=== PATIENT | female | born 2000 | race Two or more races ===

== ENCOUNTER 2020-08-29 00:31 | Emergency (ER) | payer OTHER ==
[~2020-08-29] VITALS: Ht 167.6 cm; Wt 59.0 kg
[2020-08-29 01:10] VITALS: BP 128/80
[2020-08-29 03:54] LABS: Urine Bacteria NONE SEEN /hpf (None Seen); Urine Blood 1+ /uL (Negative); Urine WBC <1 /hpf (0 - 5)
[2020-08-29] MEDS ORDERED: HYDROcodone-ACET 10/325MG TAB PO ONE (04:45)
== END 2020-08-29 06:31 | disposition home or self-care (01) ==
LOC: ER 00:31 → EDBD 00:31 → ER 06:31
DX: H05.232 Hemorrhage of left orbit (principal); M79.89 Other specified soft tissue disorders; V43.52XA Car driver injured in collision with other type car in traffic accident, initial encounter; Y93.89 Activity, other specified; Y92.89 Other specified places as the place of occurrence of the external cause; Y99.8 Other external cause status
CPT/HCPCS: 70450; 70486; 71045; 72125; 81001; 81025